=== PATIENT | male | born 1980 | race Caucasian/White ===

== ENCOUNTER 2025-06-20 12:22 | Inpatient (IN) | payer MEDICAID ==
[~2025-06-20] VITALS: Ht 167.6 cm; Wt 89.8 kg
[2025-06-20] MEDS ORDERED: IV NORMAL SALINE 250 ML IV ONE (14:59)
[2025-06-20] MEDS ORDERED: SWABABLE VALVE TRANSFER SET EA MC ONE (14:59)
[2025-06-20] MEDS ORDERED: IOHEXOL 350 100 ML INFUS..BTL ONE ×2 (14:59→16:14)
[2025-06-20] MEDS: NICARDIPINE IN NS 200 ML IV PRN (15:00)
[2025-06-20] MEDS: IV NORMAL SALINE 1000 ML BAG IV ONE (15:00)
[2025-06-20 15:09] LABS: PLATELET COUNT (AUTO) 162 K/uL (152-348); RED BLOOD CELL COUNT(AUTO) 5.43 MIL/uL (4.06-5.63); RED CELL DISTRIBUTION WIDTH 13.6 % (12.1-16.2); WHITE BLOOD COUNT (AUTO) 7.9 K/uL (3.6-10.2)
[2025-06-20 15:10] LABS: CREATININE 0.9 mg/dL (0.6-1.3); SODIUM SERUM 141 mmol/L (136-145); UREA NITROGEN, BLOOD 20 mg/dL (7-18)
[2025-06-20 15:17] LABS: ASPARTATE AMINOTRANSFERASE 50 U/L (15-37); TOTAL PROTEIN, SERUM 7.6 g/dL (6.4-8.2)
[2025-06-20] MEDS ORDERED: ONDANSETRON 4 MG/2 ML VIAL ONE (16:50)
[2025-06-20] MEDS ORDERED: MORPHINE SULFATE 4 MG/1 ML DISP.SYRIN ONE (16:50)
[2025-06-20] MEDS: MORPHINE SULFATE 4 MG/1 ML DISP.SYRIN IV ONE (16:58)
[2025-06-20] MEDS: ONDANSETRON 4 MG/2 ML VIAL IV ONE (16:59)
[2025-06-20 18:20] LABS: *AMPHETAMINE, URINE NEGATIVE (NEGATIVE); *BARBITURATE, URINE NEGATIVE (NEGATIVE); *BENZODIAZEPINE, URINE NEGATIVE (NEGATIVE); *CANNABINOID, URINE NEGATIVE (NEGATIVE); *COCCAINE, URINE NEGATIVE (NEGATIVE); *OPIATE, URINE NEGATIVE (NEGATIVE); *PHENCYCLIDINE SCREEN,URINE NEGATIVE (NEGATIVE); FENTANYL, URINE NEGATIVE (NEGATIVE)
[2025-06-20] MEDS ORDERED: ONDANSETRON 4 MG/2 ML VIAL IV PRN (20:15)
[2025-06-20] MEDS ORDERED: HYDROCODONE/APAP 5-325MG TABLET PO PRN (20:15)
[2025-06-20] MEDS ORDERED: ENALAPRILAT DIHYDRATE 1.25 MG/1 ML VIAL IV PRN (20:15)
[2025-06-20 20:30] VITALS: BP 143/100; TEMP 98.8; O2SAT 97
[2025-06-20] MEDS: HYDROCHLOROTHIAZIDE 25 MG TABLET PO ONE (20:47)
[2025-06-20] MEDS ORDERED: METOPROLOL TARTRATE 50 MG TABLET PO ONE (21:00)
[2025-06-20] MEDS: METOPROLOL TARTRATE 50 MG TABLET PO SCH (22:01)
[2025-06-20 23:39] VITALS: BP 119/79; TEMP 99.2; O2SAT 98
[2025-06-21] MEDS: ACETAMINOPHEN 325 MG TABLET PO PRN (04:56)
[2025-06-21 06:03] VITALS: BP 110/63; TEMP 98.8; O2SAT 99
[2025-06-21] MEDS: PANTOPRAZOLE SODIUM 40 MG TABLET.DR PO SCH (06:28)
[2025-06-21 06:38] LABS: PLATELET COUNT (AUTO) 187 K/uL (152-348); RED BLOOD CELL COUNT(AUTO) 5.35 MIL/uL (4.06-5.63); RED CELL DISTRIBUTION WIDTH 13.9 % (12.1-16.2); WHITE BLOOD COUNT (AUTO) 10.3 K/uL (3.6-10.2)
[2025-06-21 07:02] LABS: ASPARTATE AMINOTRANSFERASE 33.0 U/L (15-37); CREATININE 1.0 mg/dL (0.6-1.3); SODIUM SERUM 141.0 mmol/L (136-145); TOTAL PROTEIN, SERUM 7.0 g/dL (6.4-8.2); UREA NITROGEN, BLOOD 20.0 mg/dL (7-18)
[2025-06-21 07:34] VITALS: BP 130/80; TEMP 98.4; O2SAT 97
[2025-06-21] MEDS: ASPIRIN EC 81 MG TABLET.DR PO SCH (08:11)
[2025-06-21] MEDS: LOSARTAN POTASSIUM 50 MG TABLET PO SCH (09:51)
[2025-06-21 11:22] VITALS: BP 115/85; TEMP 98; O2SAT 100
[2025-06-21 15:44] VITALS: BP 122/77; TEMP 98.2; O2SAT 96
[2025-06-21 19:00] VITALS: BP 127/93; TEMP 98.5; O2SAT 95
[2025-06-21 20:34] VITALS: BP 127/93
[2025-06-21] MEDS ORDERED: ATOR20TA PO (21:28)
[2025-06-21] MEDS ORDERED: LOSA50TA3 PO (21:28)
[2025-06-21] MEDS ORDERED: ASPI-618 PO (21:28)
[2025-06-21] MEDS ORDERED: METO50TA16 PO (21:28)
== END 2025-06-21 22:15 | disposition home or self-care (01) | DRG 199 ==
LOC: ER 12:22 → TELE3 20:04
PROVIDERS: ADMIT Internal Medicine; ATTEND Internal Medicine
DX: I16.9 Hypertensive crisis, unspecified (principal); E66.9 Obesity, unspecified; I25.119 Atherosclerotic heart disease of native coronary artery with unspecified angina pectoris; Z82.49 Family history of ischemic heart disease and other diseases of the circulatory system; Z68.32 Body mass index [BMI] 32.0-32.9, adult; F17.210 Nicotine dependence, cigarettes, uncomplicated; R51.9 Headache, unspecified; E78.5 Hyperlipidemia, unspecified; R74.01 Elevation of levels of liver transaminase levels; R20.0 Anesthesia of skin
CPT/HCPCS: 36415; 70450; 71045; 83690; 83735; 84100; 84443; 84484; 85025; 85730; 86850; 86900; 86901; 93307; A4606; A4663; G0378; J0360; J2270; J2405; J7040; Q9967